=== PATIENT | female | born 1985 | race Caucasian/White ===

== ENCOUNTER 2019-10-26 00:43 | Outpatient (CLI) | payer BC, SELFPAY ==
[2019-10-26 18:42] LABS: SARS-CoV-2 RNA PCR Negative
== END 2019-10-26 00:44 | disposition home or self-care (01) ==
LOC: ANHCOVIDDT 00:43
PROVIDERS: Anesthesiology; Visit Provider Obstetrics & Gynecology
DX: Z20.828 Contact with and (suspected) exposure to other viral communicable diseases (principal)
CPT/HCPCS: 87635; C9803; U0003

== ENCOUNTER 2019-10-26 10:38 | Outpatient (CLI) | payer BC, SELFPAY ==
[2019-10-26 11:18] LABS: Hematocrit 37.4 % (37.0-47.0); Hemoglobin 12.2 g/dL (12.0-15.0)
== END 2019-10-26 10:39 | disposition home or self-care (01) ==
LOC: ANHSURGERY 10:47
PROVIDERS: Anesthesiology; Visit Provider Obstetrics & Gynecology
DX: D64.9 Anemia, unspecified (principal)
CPT/HCPCS: 36415; 85014; 85018

== ENCOUNTER 2019-10-28 01:06 | Day surgery (SDC) | payer BC, SELFPAY ==
[2019-10-28] VITALS (10 sets, daily range): BP systolic 103–134; BP diastolic 58–82; PULSE 55–75; RESP 12–22; TEMP 36.3–36.6; O2SAT 97–100
[2019-10-28] MEDS: LACTATED RINGERS 1,000 ML 30 ML IV CONT ×2 (11:18→14:02)
--- NOTE | 2019-10-28 12:11 | WPDANESEPPF ---
Anes - Initial Pre Proc Eval Procedure: Operation Date: 10/28/19 13:00 Proposed Procedures p Laparoscopic Bilateral Tubal Sterilization With Fulguration - Bridgette Justin MD Date/Time: 10/28/19 12:11 Surgeon: Bridgette Justin MD Pre Op Diagnosis: Desired Sterilization Patient Data Age: 34 Gender: F Height: 5 ft 3 in Weight: 113 kg Last Vital Signs Temp 36.6 C 10/28/19 11:58 Pulse 70 10/28/19 11:58 Resp 18 10/28/19 11:58 BP 134/82 10/28/19 11:58 Pulse Ox 99 10/28/19 11:58 Allergies Allergy/AdvReac Type Severity Reaction Status Date / Time cefuroxime [From Ceftin] AdvReac Severe Rash Verified 10/28/19 11:56 levofloxacin [From Levaquin] AdvReac Severe Rash Verified 10/28/19 11:56 adhesive tape AdvReac Mild Rash Verified 10/28/19 11:56 Home Medications Medication Instructions Recorded Confirmed Type acetaminophen 1,000 mg PO QID PRN 10/11/19 10/28/19 History vit,karely 32-bxrh-cnbcl 2 tablet PO DAILY 10/11/19 10/28/19 History [ Low Iron] Patient hx anesthesia problems: none Family hx anesthesia problems: none PMFSH Past Medical History Medical History PCOS (polycystic ovarian syndrome) Social History Social History Years smoked: 10 Smoking status: Former smoker Alcohol intake: never Substance use: never Substance use type: does not use Last use: 2012 Living arrangements: with family Gender identity (if verbalized by the patient): Female Spiritual care concerns: No Anes - Eval Final PreProcedure Day of Procedure 10/28/19 12:11 Patient weight: morbidly obese Heart: regular rate and rhythm Lungs: clear to auscultation Airway: Mallampati scale class II Neurological: alert and oriented Last oral intake: >/= 8 hours ASA classification: III Emergent: no Anesthetic plan: proceed Anesthesia type and monitoring: general ETT and standard monitoring Informed Consent: The patient's anesthetic plan and its attendant risks and benefits were discussed with the patient/family/POA. Questions were solicited and answers provided to the satisfaction of the patient/family/POA.
[2019-10-28] MEDS: KETOROLAC 15 MG/ML VIAL (*BKC) IV PUSH (12:13)
[2019-10-28] MEDS: ACETAMINOPHEN 500 MG TABLET 1000 MG PO (12:13)
--- NOTE | 2019-10-28 12:57 | PM.HPGS ---
History of Present Illness History of Present Illness Consent: Risks, benefits, and alternatives have been discussed and questions answered. Patient agrees to proceed with procedure. Chief complaint: Desired Sterilization Narrative: Ananya Iglesias is a 34 year old female here for contraception. Hopeful for permament sterilization. Disucssed laparoscopic tubal sterilization with fulguration PMFSH Past Medical History Medical History PCOS (polycystic ovarian syndrome) Social History Social History Years smoked: 10 Smoking status: Former smoker Alcohol intake: never Substance use: never Substance use type: does not use Last use: 2012 Living arrangements: with family Gender identity (if verbalized by the patient): Female Spiritual care concerns: No Meds Home Medications and Allergies Home Medications Medication Instructions Recorded Confirmed Type acetaminophen 1,000 mg PO QID PRN 10/11/19 10/28/19 History vit,karely 45-lbol-sgpyd 2 tablet PO DAILY 10/11/19 10/28/19 History [ Low Iron] Allergies Allergy/AdvReac Type Severity Reaction Status Date / Time cefuroxime [From Ceftin] AdvReac Severe Rash Verified 10/28/19 11:56 levofloxacin [From Levaquin] AdvReac Severe Rash Verified 10/28/19 11:56 adhesive tape AdvReac Mild Rash Verified 10/28/19 11:56 Vital Signs Vital Signs - 24 hr 10/28/19 11:58 Temperature 36.6 C Pulse Rate 70 Respiratory Rate 18 Blood Pressure 134/82 Pulse Oximetry 99
--- NOTE | 2019-10-28 12:59 | WPDHPUPDATE1 ---
History and Physical Update Update Date/Time: 10/28/19 12:59 History and Physical has been reviewed, including an updated exam of the patient. There are NO changes in the patient's condition. Risks, benefits, and alternatives have been discussed and questions answered. Patient agrees to proceed with procedure.
[2019-10-28] MEDS: BUPIVACAINE/EPINEPHRINE 0.5% 30 ML VIAL 10 ML INFILTRATE (13:25)
--- NOTE | 2019-10-28 14:09 | PM.PROC ---
Procedure Note - Detailed Date of procedure: 10/28/19 Pre-op diagnosis: Desired Sterilization Post-op diagnosis: same Procedure performed: Laparoscopic bilateral tubal sterilization with Fulguration Description of procedure: The patient was taken to the operating room where general anesthesia was found to be adequate. She was then prepared and draped in the dorsal lithotomy position in [facility]. A stanley catheter was inserted. A speculum was used to visualize the cervix and a single toothed tenaculum placed on the anterior lip. An acorn uterine manipulator was placed within the cervix and affixed to the tenaculum. Speculum was removed and attention was turned to the umbilicus which was injected with 1% lidocaine with epinephrine, incised with a scalpel and a veres needle used to enter into the peritoneum. Saline drop test positive for entry. Pneumoperitoneum was then created with CO2. She was insufflated to 15mmHg. The veres needle was removed and a 5 mm port placed with optical entry. She was then placed in Trendelenberg and the pelvis visualized. The uterus was elevated and bilateral tubes and ovaries appeared normal. There were no pelvic adhesions. Upper abdomen also appeared normal. So a second port was placed at the suprapubic region. This was injected with 1cc 1% lidocaine with epinephrine, an incision made with a scalpel and hemastat used to dissect the subcutaneous tissue. A 5mm port was placed and balloon inflated. A kleppenger was then used to grasp the tube on the left and cuaterize 2/3 of the mid portion of the tube along the tubal and paratubal tissue with good dessication. Similarly the right tube was fulgurated with Kleppenger. Photos were taken at the end of the procedure. Fimbria verified on both sides to ensure the fallopian tube was cauterized. The procedure was completed. So the instruments removed. Pneumoperitoneum released and incisions closed with 4-0 monocryl. The incisions were covered with Tegaderm. All instruments removed from the vagina. Of note the anterior lip of the cervix appeared irregular as can be normal after a recent vaginal delivery. However, after removing the tenaculum it was bloody. So silver nitrate used to cauterize this region and allowed hemostasis. All instruments removed along with the stanley catheter and the patient was taken to recovery in stable condition. All sponge lap and needle counts were correct Anesthesia: GETA Surgeon: Bridgette Justin MD Estimated blood loss (mL): 10 Drains: No Packing: No Pathology: none sent Complications: No immediate complications Condition: stable Disposition: PACU
== END 2019-10-28 16:40 | disposition home or self-care (01) ==
PROVIDERS: Visit Provider Obstetrics & Gynecology
PROC: (CPT 58671; principal; 2019-10-28 13:00)
DX: Z30.2 Encounter for sterilization (principal); E28.2 Polycystic ovarian syndrome; E66.01 Morbid (severe) obesity due to excess calories; Z68.41 Body mass index [BMI] 40.0-44.9, adult; Z98.84 Bariatric surgery status; Z87.891 Personal history of nicotine dependence
CPT/HCPCS: 58670; A9270; J0330; J1100; J1885; J2250; J2370; J2405; J2704; J3010; J7120